=== PATIENT | female | born 1975 | race Caucasian/White ===

== ENCOUNTER → 2016-02-22 | Outpatient (CLI) | payer MEDICAID ==
[~2016-02-22] MED LIST: AC500T PO; ACHD5005 PO; ACYC400T PO; ALPR1TAB7 PO; CEFD300C PO; CEFT1VIA IM; DIVA125T2 PO; DIVA250T4 PO; DOXY100T41 PO; ESTR1PAT TD; ESTR2TAB4 PO; LEVO500T16 PO; LORA0.5T PO; LURA40TA PO; MTP50T PO; OLAN20TA16 PO; OMEP40CA36; OXYC15TA79 PO; PANT40TA3 PO; PARO40TA3 PO; PHEN-725 PO; QUET50TA PO; TAMS-8 PO; TRM50T PO
[2016-02-22 12:42] LABS: MEAN CORPUSCULAR HEMOGLOBIN 30.9 PG (26.0-34.0); MEAN CORPUSCULAR HGB CONC 33.6 g/dL (31.0-37.0); MEAN CORPUSCULAR VOLUME 92 FL (80-100); MEAN PLATELET VOLUME 11.6 FL (6.0-9.5); PLATELET COUNT 199 10^3uL (150-450); WHITE BLOOD COUNT 6.73 10^3uL (4.0-11.0)
[2016-02-22 13:09] LABS: BAND NEUTROPHILS % 0 % (0-6); EOSINOPHILS % 0 % (0-4); LYMPHOCYTES # 2.4 #; MONOCYTES # 0.2 #; MONOCYTES % 3 % (3-11); SEGMENTED NEUTROPHILS % 62 % (51-67); TOTAL CELLS COUNTED 100
[2016-02-22 13:10] LABS: RBC MORPH NORMAL (NORMAL)
[2016-02-22 13:19] LABS: ANION GAP 15.4 MEQ/L (3-15)
== END ==
LOC: LAB 12:15
PROVIDERS: ATTEND Family Medicine
DX: J06.9 Acute upper respiratory infection, unspecified (principal)
CPT/HCPCS: 36415; 80048; 85007; 85027; 86140

== ENCOUNTER 2016-03-17 09:36 | Inpatient (IN) | payer MEDICAID ==
[~2016-03-17] VITALS: Ht 170.2 cm; Wt 94.7 kg
--- NOTE | 2016-03-17 09:40 | NUR ---
Patient arrives ambulatory to room [address] Armen Guzman's office. Reports right lower abdominal pain rated 9/10 that radiates to back, nausea, and fatigue. Reports symptoms began on January 21. Bladder pouch "constructed 20 years ago. I use the same catheter 6-12 times because insurance won't provide me with one for every time". Patient self catheterizes shortly after arrival and has 825 ml cloudy orange urine that is foul smelling out. See admission for full assessment.
[2016-03-17 09:48] VITALS: BP 140/105
--- NOTE | 2016-03-17 10:00 | NUR ---
22g IV initiated on first attempt into left forearm. Flushes well without redness or swelling. Patient tolerates well.
[2016-03-17] MEDS ORDERED: POLYETHYLENE GLYCOL 17 GM (MIRALAX) PACKET PO PRN (10:40)
[2016-03-17] MEDS ORDERED: MAG HYDROX/AL HYDROX/SIMETH 200-200-20/5 ML (MAG-AL PLUS) 30 ML UDC PO PRN (10:40)
[2016-03-17] MEDS ORDERED: MAGNESIUM HYDROXIDE 80MG/ML (MILK OF MAGNESIA) 30 ML UDC PO PRN (10:40)
[2016-03-17] MEDS ORDERED: CALCIUM CARBONATE CHEWABLE 300 MG (TUMS) TABLET PO PRN (10:40)
[2016-03-17 10:59] LABS: BILIRUBIN,URINE Negative (Negative); CLARITY,URINE Cloudy; COLOR,URINE Yellow; GLUCOSE, URINE (UA) Negative (Negative); LEUKOCYTE ESTERASE, URINE 3+ (Negative)
[2016-03-17] MEDS: cefTRIAXone SODIUM 1,000 MG in SODIUM CHLORIDE 50 ML IV SCH (11:05)
[2016-03-17] MEDS: NS FLUSH 3 ML PRN IV ×2 (11:06→16:38)
[2016-03-17] MEDS: ONDANSETRON 4 MG (ZOFRAN) ORAL DISSOLVE TAB PO PRN (11:06)
[2016-03-17] MEDS: ACETAMINOPHEN 325 MG TAB (TYLENOL) PO PRN (11:08)
[2016-03-17 11:20] LABS: URINE CENTRIFUGED VOLUME 12 mL
[2016-03-17 11:28] VITALS: BP 114/72
[2016-03-17 11:29] LABS: BASOPHILS % (AUTO) 0 % (0-2); EOSINOPHILS % (AUTO) 1 % (0-4); LYMPHOCYTES # (AUTO) 0.8 X10^3; MEAN CORPUSCULAR HGB CONC 34.4 g/dL (31.0-37.0); MEAN CORPUSCULAR VOLUME 91 FL (80-100); MEAN PLATELET VOLUME 11.6 FL (6.0-9.5); MONOCYTES # (AUTO) 0.3 X10^3; MONOCYTES % (AUTO) 5 % (3-11); NEUTROPHILS # (AUTO) 5.7 X10^3; NEUTROPHILS % (AUTO) 82 % (51-67); PLATELET COUNT 189 10^3uL (150-450); WHITE BLOOD COUNT 6.89 10^3uL (4.0-11.0)
[2016-03-17 11:32] LABS: MEAN CORPUSCULAR HEMOGLOBIN 31.4 PG (26.0-34.0)
[2016-03-17] MEDS: HYDROmorphone 2 MG/ML (DILAUDID) 1 ML SYRINGE IV PRN ×6 (11:33→22:56)
[2016-03-17 11:42] LABS: ALBUMIN 3.5 g/dL (3.4-5.0); ANION GAP 14.5 MEQ/L (3-15); CALCULATED IONIZED CALCIUM 4.3 mg/dL (3.8-4.6); TOTAL PROTEIN 6.9 g/dL (6.4-8.5)
--- NOTE | 2016-03-17 11:55 | NUR ---
MED REC COMPLETE--current med list obtained from external med history application and patient interview. Conducted by Luis Daniel Stanford, Pharm. D. Candidate 2017.
[2016-03-17] MEDS: ALPRAZolam 0.5 MG (XANAX) TAB PO PRN ×2 (12:29→20:48)
--- NOTE | 2016-03-17 14:07 | NUR ---
MULTIDISCIPLINARY MTG/DR. PIERCE: Pt. admitted due to an ongoing UTI that her PCP has been trying to treat in the outpatient setting for several weeks. Pt. is scheduled for a renal sono today at 14:30. There is possible concern for a renal mass. No discharge needs identified at this time.
[2016-03-17] MEDS: NS FLUSH 10 ML PRN IV (14:25)
--- NOTE | 2016-03-17 14:59 | NUR ---
Ultrasound in room for renal ultrasound.
[2016-03-17 16:04] VITALS: BP 108/74
--- NOTE | 2016-03-17 16:04 | NUR ---
14 mohawk catheter inserted into internal bladder pouch. Yellow urine with moderate sediment draining without difficulty. Patient tolerates well.
[2016-03-17] MEDS: diphenhydrAMINE 25 MG (BENADRYL) TABLET PO PRN (16:59)
[2016-03-17] MEDS ORDERED: LURASIDONE PO SCH ×2 (17:00→21:00)
[2016-03-17] MEDS: meTOprolol TARTRATE 50 MG (LOPRESSOR) TABLET PO SCH (17:34)
[2016-03-17] MEDS: KETOROLAC 15 MG/ML (TORADOL) 1 ML VIAL IV SCH (17:35)
[2016-03-17 20:30] VITALS: BP 141/74
[2016-03-17] MEDS: OLANZAPINE 10 MG PO SCH (20:46)
[2016-03-18 00:32] VITALS: BP 154/71
[2016-03-18] MEDS: HYDROmorphone 2 MG/ML (DILAUDID) 1 ML SYRINGE IV PRN ×5 (02:00→21:36)
[2016-03-18] MEDS: NS FLUSH 10 ML PRN IV ×4 (05:03→23:30)
[2016-03-18] MEDS: KETOROLAC 15 MG/ML (TORADOL) 1 ML VIAL IV SCH ×4 (05:54→18:47)
[2016-03-18 06:12] VITALS: BP 134/75
[2016-03-18 06:12] LABS: BASOPHILS % (AUTO) 0 % (0-2); EOSINOPHILS # (AUTO) 0.1 10^3uL; EOSINOPHILS % (AUTO) 2 % (0-4); LYMPHOCYTES # (AUTO) 1.7 X10^3; MEAN CORPUSCULAR HEMOGLOBIN 31.1 PG (26.0-34.0); MEAN CORPUSCULAR HGB CONC 33.1 g/dL (31.0-37.0); MEAN CORPUSCULAR VOLUME 94 FL (80-100); MEAN PLATELET VOLUME 11.8 FL (6.0-9.5); MONOCYTES # (AUTO) 0.3 X10^3; MONOCYTES % (AUTO) 7 % (3-11); NEUTROPHILS # (AUTO) 2.4 X10^3; NEUTROPHILS % (AUTO) 54 % (51-67); PLATELET COUNT 169 10^3uL (150-450)
[2016-03-18] MEDS: PANTOPRAZOLE 40 MG (PROTONIX) TAB PO SCH (06:18)
[2016-03-18 06:46] LABS: ALBUMIN 2.8 g/dL (3.4-5.0); ANION GAP 10.4 MEQ/L (3-15); PHOSPHORUS 3.8 mg/dL (2.4-4.9)
[2016-03-18] MEDS: ALPRAZolam 0.5 MG (XANAX) TAB PO PRN ×2 (07:14→15:31)
[2016-03-18 08:08] VITALS: BP 151/89
[2016-03-18] MEDS: meTOprolol TARTRATE 50 MG (LOPRESSOR) TABLET PO SCH ×2 (09:18→18:46)
[2016-03-18] MEDS: ACYCLOVIR 200 MG CAP (ZOVIRAX) PO SCH (09:18)
[2016-03-18] MEDS: OXYCODONE IMMEDIATE PO PRN ×3 (09:18→20:10)
[2016-03-18] MEDS: ESTRADIOL 1 MG (ESTRACE) TABLET PO SCH (09:18)
--- NOTE | 2016-03-18 09:18 | NUR ---
PRN OxyIR given at this time for c/o back and abd pain rated 8/10. Denies other needs.
[2016-03-18] MEDS: ENOXAPARIN 40 MG/0.4 ML (LOVENOX) SYR SC SCH (09:20)
--- NOTE | 2016-03-18 09:35 | NUR ---
Pt down to CT at this time via w/c.
[2016-03-18] MEDS: NS FLUSH 3 ML DAILY IV SCH (11:02)
[2016-03-18 11:38] VITALS: BP 184/91
--- NOTE | 2016-03-18 13:14 | NUR ---
PRN Dilaudid given at this time in SL. Denies other needs.
[2016-03-18] MEDS: cefTRIAXone SODIUM 1,000 MG in SODIUM CHLORIDE 50 ML IV SCH (13:17)
[2016-03-18] MEDS: diphenhydrAMINE 25 MG (BENADRYL) TABLET PO PRN ×2 (13:39→21:43)
[2016-03-18] MEDS: ONDANSETRON 4 MG (ZOFRAN) ORAL DISSOLVE TAB PO PRN (13:40)
--- NOTE | 2016-03-18 13:40 | NUR ---
PRN Benadryl and Zofran given at this time per pt request. Denies other needs.
--- NOTE | 2016-03-18 14:00 | NUR ---
Pt returns from CT around 1100. Unable to do CT d/t pt's IV infiltrating. Multiple attempts were made in Radiology prior to pt's return to floor. Maria Eugenia Heller RN attempted multiple times with no success. Gwendolyn Shipley RN attempted once. Lin Wilhelm RN attempted twice with success on the 2nd attempt: 20g L H. IV is very tender, but no redness or edema present. Pt returned to CT with manual injection of IV contrast. Pt returned to regular diet.
--- NOTE | 2016-03-18 14:30 | NUR ---
Pt requests to [id number] at this time. Supplies provided. Pt inserted 14 Fr catheter into stoma and advanced it entirely with no output. Pulled catheter out and back in multiple times with no output. Pt pulls catheter completely out and blows into opposite end of catheter with her mouth, expelling a mucus plug, and places the catheter back into stoma. Pt states "I know that's gross, but when that mucus gets stuck, that's the only way to get it out". 750mL result from straight cath. Abel notified. Will consult infection control nurse to educate patient on proper technique for straight cath.
--- NOTE | 2016-03-18 15:31 | NUR ---
PRN OxyIR and Xanax given at this time per pt request. Rates pain 6/10. Denies other needs.
[2016-03-18 15:33] VITALS: BP 155/85
[2016-03-18] MEDS: LURASIDONE PO SCH (18:45)
--- NOTE | 2016-03-18 19:00 | NUR ---
Upon administration of CARTER Toradol, pt's IV infiltrated. SOLEDAD Gastelum notified. Pt states Toradol doesn't help anyway and requests IV Dilaudid once IV is restarted. Denies other needs.
--- NOTE | 2016-03-18 19:15 | NUR ---
Nirav/SOLEDAD here to start IV.
[2016-03-18 20:00] VITALS: BP 132/72
[2016-03-18] MEDS: OLANZAPINE 10 MG PO SCH (20:10)
--- NOTE | 2016-03-18 20:11 | NUR ---
OxyIR 30 mg PO given for back pain R/T full bladder. Pt. states she recently had a bowel movement; flushed. New IV site in left foot is without HERP.
--- NOTE | 2016-03-18 20:20 | NUR ---
Bladder drained at this time using clean technique. Pt. very rude and disrespectful to this nurse; dictates method to be used even though prior method has proved unhealthy. Gloves provided to pt. as she continued to grab equipment/materials with her bare hands. Bladder drained; pt. repeatedly inserted/retracted tubing during draining; 1300 cc's output; small amount of mucous noted.
--- NOTE | 2016-03-18 21:36 | NUR ---
Dilaudid 2 mg IV given for pain in back rated "8". Room adjusted for comfort. Pt. has many requests met by this nurse. H2O and call light within reach.
--- NOTE | 2016-03-18 21:45 | NUR ---
Benadryl 25 mg PO given for itching/sleep. Pt. currently eating cookie; watching tv.
[2016-03-19 00:30] VITALS: BP 120/76
[2016-03-19] MEDS: NS FLUSH 10 ML PRN IV ×6 (00:35→18:29)
[2016-03-19] MEDS: OXYCODONE IMMEDIATE PO PRN ×4 (00:35→20:54)
[2016-03-19] MEDS: KETOROLAC 15 MG/ML (TORADOL) 1 ML VIAL IV SCH ×3 (00:35→11:47)
[2016-03-19] MEDS: DOCUSATE SODIUM 100 MG (COLACE) CAP PO PRN (00:40)
--- NOTE | 2016-03-19 00:40 | NUR ---
Scheduled Toradol given in IV site at left foot; site working well. OxyIR 30 mg given for pain rated "6-7". Colace given per pt. request. Pt. slurring words; slow to respond to questions. Call light and H2O within reach.
--- NOTE | 2016-03-19 03:00 | NUR ---
Pt. resting quietly; resp are even and unlabored on room air; appears to be in no distress. Call light and H2O within reach.
--- NOTE | 2016-03-19 04:56 | NUR ---
OxyIR 30 mg PO given for left flank pain rated "4". Pt. has been resting in long intervals thus far; fan blowing on pt. for comfort. Call light and H2O within reach.
--- NOTE | 2016-03-19 05:10 | NUR ---
Bladder drained at this time using a 14 Fr. cath; 425 cc's dark holley, cloudy urine. Pt. cooperative with activity; pleasant to this nurse and accompanying RN/Pricila. Pt. 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 Call light within reach.
[2016-03-19 06:00] VITALS: BP 121/70
[2016-03-19] MEDS: PANTOPRAZOLE 40 MG (PROTONIX) TAB PO SCH (06:17)
[2016-03-19] MEDS: diphenhydrAMINE 25 MG (BENADRYL) TABLET PO PRN ×2 (06:17→20:53)
[2016-03-19] MEDS: ALPRAZolam 0.5 MG (XANAX) TAB PO PRN ×2 (06:17→14:53)
--- NOTE | 2016-03-19 06:20 | NUR ---
Scheduled Toradol and Protonix given at this time. Xanax 1 mg PO for anxiety; Benadryl 25 mg PO for itching; MOM 30 ml's PO given for constipation-per pt. request. Pt. takes right hand/wrist brace off for awhile; pain level attributed to both wrist pain and also flank/back pain.
[2016-03-19] MEDS: HYDROmorphone 2 MG/ML (DILAUDID) 1 ML SYRINGE IV PRN ×4 (07:14→18:29)
--- NOTE | 2016-03-19 07:15 | NUR ---
Dilaudid 2 mg IV given for pain rated "6" located in right hand/wrist; back. Pt. states, "Toradol is like water; it doesn't do a thing for me!" Pt. asks additional questions pertaining to bowel movements; laxatives/softeners. Pt. has denied nausea all shift. Call light and H2O within reach. Pt. asks for additional Sprite.
[2016-03-19 08:04] VITALS: BP 147/93
[2016-03-19] MEDS: meTOprolol TARTRATE 50 MG (LOPRESSOR) TABLET PO SCH ×2 (08:43→17:47)
[2016-03-19] MEDS: ESTRADIOL 1 MG (ESTRACE) TABLET PO SCH (08:43)
[2016-03-19] MEDS: NS FLUSH 3 ML DAILY IV SCH (08:43)
[2016-03-19] MEDS: ACYCLOVIR 200 MG CAP (ZOVIRAX) PO SCH (08:43)
[2016-03-19] MEDS: ENOXAPARIN 40 MG/0.4 ML (LOVENOX) SYR SC SCH (08:44)
[2016-03-19] MEDS ORDERED: VANCOMYCIN 1,000 MG in SODIUM CHLORIDE 250 ML IV SCH (09:00)
[2016-03-19] MEDS: cefTRIAXone SODIUM 1,000 MG in SODIUM CHLORIDE 50 ML IV SCH (10:34)
--- NOTE | 2016-03-19 11:03 | NUR ---
Pharmacy Dosed Vanco S: UTI w/ bcx showing MRSA O: 42F 67in 94.5kg (adjusted to 74.8kg) SCr 0.79 A/P: Started Rocephin 1g daily and added Vanco 1250mg IV q12h with a predicted trough of 15.6 to be drawn 03/21/16 @0830.
[2016-03-19] MEDS: VANCOMYCIN 1250 MG in SODIUM CHLORIDE 250 ML IV SCH ×2 (11:13→21:00)
--- NOTE | 2016-03-19 11:30 | NUR ---
Patient self catheterizes herself with nurse supervision. Demonstrates proper technique using sterile gloves. 1500 ml clear yellow urine drained from bladder.
[2016-03-19 12:00] VITALS: BP 134/89
[2016-03-19 12:29] LABS: ANION GAP 12.1 MEQ/L (3-15); MAGNESIUM* 1.8 mg/dL (1.6-2.3); PHOSPHORUS 4.3 mg/dL (2.4-4.9)
[2016-03-19 12:37] LABS: BASOPHILS % (AUTO) 0 % (0-2); EOSINOPHILS # (AUTO) 0.1 10^3uL; EOSINOPHILS % (AUTO) 1 % (0-4); LYMPHOCYTES # (AUTO) 1.6 X10^3; MEAN CORPUSCULAR HEMOGLOBIN 31.1 PG (26.0-34.0); MEAN CORPUSCULAR HGB CONC 33.4 g/dL (31.0-37.0); MEAN CORPUSCULAR VOLUME 93 FL (80-100); MEAN PLATELET VOLUME 11.1 FL (6.0-9.5); MONOCYTES # (AUTO) 0.3 X10^3; MONOCYTES % (AUTO) 7 % (3-11); NEUTROPHILS # (AUTO) 2.7 X10^3; NEUTROPHILS % (AUTO) 57 % (51-67); PLATELET COUNT 165 10^3uL (150-450); WHITE BLOOD COUNT 4.73 10^3uL (4.0-11.0)
[2016-03-19] MEDS: ONDANSETRON 4 MG (ZOFRAN) ORAL DISSOLVE TAB PO PRN (14:50)
[2016-03-19 15:41] VITALS: BP 132/94
--- NOTE | 2016-03-19 16:00 | NUR ---
PRN Dilaudid provided for c/o right sided flank pain rated 6/10 on pain scale. Patient self catheterizes at this time with proper technique. 1400 ml clear yellow urine drained from bladder. Patient expresses emotional distress regarding life style of catheterizing self. Support group resource provided to patient. Positive reassurance provided. Call light in reach.
[2016-03-19] MEDS: LURASIDONE PO SCH (16:33)
--- NOTE | 2016-03-19 18:21 | NUR ---
Patient sitting up in bed consuming supper. Reports pain persists despite PRN OxyIR and Dilaudid. Encouraged patient to ambulate and drink plenty of water. Call light in reach.
--- NOTE | 2016-03-19 19:50 | NUR ---
Visitor in pt. room; pt. appears very happy; smiles. Pt. denies current needs; rates current pain level at "3"; saline lock at left foot secure and without HERP. Call light and H2O within reach.
[2016-03-19 20:26] VITALS: BP 130/76
[2016-03-19] MEDS: OLANZAPINE 10 MG PO SCH (20:53)
--- NOTE | 2016-03-19 20:55 | NUR ---
OxyIR 30 mg given for pain rated "4". Benadryl 25 mg PO given for itching.
[2016-03-19] MEDS ORDERED: VANCOMYCIN COMPOUNDED BY PHARMACY IV SCH (21:00)
--- NOTE | 2016-03-19 21:00 | NUR ---
Vancomycin currently infusing without difficulty at left foot IV site.
--- NOTE | 2016-03-19 21:05 | NUR ---
Bladder drained at this time; pt. cooperative with utilizing clean technique-chux; gloves; povidone-iodine swabs; 14 Fr. red catheter. Total of 1225 cc's yellow/cloudy/mucous urine drained. Contact precautions observed as urine positive for MRSA.
--- NOTE | 2016-03-19 21:15 | NUR ---
Pt. requests snack; additional Sprite/ice and alicia crackers/peanut butter provided. Pt. watching tv; very pleasant and cooperative with cares. Call light by left hand.
--- NOTE | 2016-03-19 23:00 | NUR ---
Pt. resting quietly; resp are even and unlabored on room air; appears to be in no distress.
[2016-03-20] VITALS (7 sets, daily range): BP systolic 128–146; BP diastolic 70–95
[2016-03-20] MEDS: NS FLUSH 10 ML PRN IV ×2 (00:58→06:07)
[2016-03-20] MEDS: HYDROmorphone 2 MG/ML (DILAUDID) 1 ML SYRINGE IV PRN ×3 (00:58→15:33)
--- NOTE | 2016-03-20 01:00 | NUR ---
Pt. requests Dilaudid; "I don't want the other one, Dilaudid works better for me". Pt. rates pain at "6" in her back and right wrist. Pt. currently sitting up in bed eating ice chips; resp are even and unlabored on room air; call light within reach.
--- NOTE | 2016-03-20 01:15 | NUR ---
Pt. self-caths utilizing good technique; 975 cc's output. Urine coloration much improved from 24 hrs. ago although mucous remains. Pt. cooperative with task. Contact precautions observed.
[2016-03-20] MEDS: OXYCODONE IMMEDIATE PO PRN ×5 (03:18→21:59)
--- NOTE | 2016-03-20 03:18 | NUR ---
OxyIR 30 mg PO given for pain rated "5".
[2016-03-20] MEDS ORDERED: NS 100 ML (IVPB) BAG IV ONE (05:40)
[2016-03-20] MEDS ORDERED: SODIUM CHLORIDE 250 ML ONE (05:42)
[2016-03-20] MEDS: DOCUSATE SODIUM 100 MG (COLACE) CAP PO PRN (06:06)
[2016-03-20] MEDS: PANTOPRAZOLE 40 MG (PROTONIX) TAB PO SCH (06:06)
--- NOTE | 2016-03-20 06:10 | NUR ---
Dilaudid 2 mg IV given for pain rated "7" in back and right wrist. Colace given per request.
--- NOTE | 2016-03-20 06:15 | NUR ---
Bladder drained at this time using good technique; pt. cooperative with procedure; this nurse assisted as needed. Yellow urine with mucous threads; 1550 cc's.
[2016-03-20] MEDS: diphenhydrAMINE 25 MG (BENADRYL) TABLET PO PRN ×2 (06:42→15:32)
[2016-03-20] MEDS: ALPRAZolam 0.5 MG (XANAX) TAB PO PRN ×3 (06:42→21:56)
--- NOTE | 2016-03-20 06:45 | NUR ---
Benadryl 25 mg PO given for report of itching; Xanax 1 mg given for anxiety. Pt. states, "You might want to call anesthesia to start another IV- this one is beginning to hurt". No edema; redness; oozing/leaking noted at current site located at left foot. Pt. encouraged to give the IV site another chance as no problems with it so far. Pt. exhibiting bilateral upper extremity edema; ambulation goal discussed for today. Pt. sitting up in bed watching tv; call light and several drinks within reach.
[2016-03-20 07:34] LABS: BASOPHILS % (AUTO) 0 % (0-2); EOSINOPHILS # (AUTO) 0.1 10^3uL; EOSINOPHILS % (AUTO) 1 % (0-4); LYMPHOCYTES # (AUTO) 1.4 X10^3; MEAN CORPUSCULAR HGB CONC 33.8 g/dL (31.0-37.0); MEAN CORPUSCULAR VOLUME 93 FL (80-100); MEAN PLATELET VOLUME 11.3 FL (6.0-9.5); MONOCYTES # (AUTO) 0.5 X10^3; MONOCYTES % (AUTO) 8 % (3-11); NEUTROPHILS # (AUTO) 3.7 X10^3; NEUTROPHILS % (AUTO) 66 % (51-67); PLATELET COUNT 177 10^3uL (150-450); WHITE BLOOD COUNT 5.62 10^3uL (4.0-11.0)
[2016-03-20 07:45] LABS: MEAN CORPUSCULAR HEMOGLOBIN 31.6 PG (26.0-34.0)
[2016-03-20 07:52] LABS: ALBUMIN 3.1 g/dL (3.4-5.0); ANION GAP 11.7 MEQ/L (3-15); MAGNESIUM* 1.6 mg/dL (1.6-2.3)
--- NOTE | 2016-03-20 08:30 | NUR ---
PRN OxyIR given at this time for c/o flank pain rated 7/10. Pt sitting up in bed, talking on phone upon entering room. Pt endorses tenderness at IV site and states "I think we should get the anesthesia luke back in here to restart it". Flushes easily, no redness or edema noted. Informed pt IV was working fine and that IV's in the foot are more tender than in the arm. Pt agrees. Denies other needs.
[2016-03-20] MEDS: ACYCLOVIR 200 MG CAP (ZOVIRAX) PO SCH (08:31)
[2016-03-20] MEDS: meTOprolol TARTRATE 50 MG (LOPRESSOR) TABLET PO SCH ×2 (08:32→18:06)
[2016-03-20] MEDS: ESTRADIOL 1 MG (ESTRACE) TABLET PO SCH (08:32)
[2016-03-20] MEDS: ENOXAPARIN 40 MG/0.4 ML (LOVENOX) SYR SC SCH (08:36)
[2016-03-20] MEDS: NS FLUSH 3 ML DAILY IV SCH (08:37)
--- NOTE | 2016-03-20 09:30 | NUR ---
Pt requests to self-catheterize herself. Uses clean technique. 1100mL result.
--- NOTE | 2016-03-20 10:30 | NUR ---
Pt requests to self-catheterize herself again. Clean technique observed. 650mL result. Inder notified d/t high volumes at 0930 and 1030. Pt endorses flank pain frequently, requesting Dilaudid. Inder instructed staff to straight cath Q2 hours in attempts to avoid IV pain medication. Pt notified, appreciative of information.
--- NOTE | 2016-03-20 12:23 | NUR ---
MULTIDISCIPLINARY MTG/DR. CERNA: Pt. was struggling with urinary retention. Pt. continues to complain of flank pain when her bladder is full. Pt. needs to self cath more frequently to help prevent this. Pt. is improving. Pt. is on IV antibiotics but will change to oral today to prepare for discharge. Pt. is using Dilaudid and her home oxycodone for pain. to discuss Pt. pain concerns and adjust medication accordingly. No discharge needs identified at this time.
--- NOTE | 2016-03-20 12:55 | NUR ---
PRN OxyIR given at this time for flank pain. Denies other needs.
--- NOTE | 2016-03-20 14:30 | NUR ---
Duff placed per Dr Loving's verbal order d/t pt's high volume straight caths and flank pain. Pt tolerated this well. Clear yellow urine with some sediment present.
--- NOTE | 2016-03-20 15:25 | NUR ---
NUTRITION ASSESSMENT Level 1 Patient: Whitney Kolb Age/Sex: 40/F Date Screened: 03-20-16 Weight: 210.3#/95.6 kg Height: 67 inches Primary Diagnosis: UTI Diet Order: regular Relevant labs: glucose 108, phosphorus 5.0 Food allergies: N Nutrition Assessment Criteria Age over 80: N Body Mass Index (BMI) under 19: N Admission Screening Indicates Risk? N Moderate/High Risk Diagnosis: N TPN or PPN: N NPO or clear liquid diet: N Serum Glucose <70 or >180: N Hgb A1c >6.7: N/A Total: 0 points Risk Screen: _X_ Patient at low nutritional risk based on available data; reevaluate in 5-7 days __ Patient at moderate nutritional risk based on available data; reevaluate in 3-5 days __ Patient at high nutritional risk; complete Nutrition Assessment within 48 hours of admission. Comments: Pt. denied weight changes, no GI concerns. She is eating well with regular diet, so appetite is improving. Will reassess as documented above.
--- NOTE | 2016-03-20 15:33 | NUR ---
PRN Dilaudid given at this time for c/o R flank pain rated 7/10. Pt resting in bed, watching TV. Denies other needs.
--- NOTE | 2016-03-20 15:45 | NUR ---
Visited with Pt. along with nurse Sanderson regarding her wishes on visitors. Pt. stated she is fine with all visitors her family and her . She said her can visit her because she is in a safe place. SW clarified her 's name and she said it is Juice Kolb. SW stated if he is going to visit they need to keep the door open so staff are aware of what is happening. Maria E explained that Juice was just here and he asked if Pt. was having visitors and he was told she is not to have visitors. Maria E offered to check with Pt. and he declined and left. Pt. became upset about this and said she would try and call him. Pt. was on the phone as SW and nurse left the room.
[2016-03-20] MEDS: DOXYCYCLINE 100 MG (VIBRAMYCIN) TABLET PO SCH (18:06)
--- NOTE | 2016-03-20 18:06 | NUR ---
PRN OxyIR given at this time for c/o flank pain. Denies other needs.
[2016-03-20] MEDS: LURASIDONE PO SCH (18:07)
[2016-03-20] MEDS ORDERED: ACETAMINOPHEN 500 MG TAB (TYLENOL) PO PRN (18:30)
[2016-03-20] MEDS: TAMSULOSIN 0.4 MG (FLOMAX) CAP PO SCH (19:42)
[2016-03-20] MEDS: OLANZAPINE 10 MG PO SCH (21:56)
[2016-03-21 06:17] LABS: BASOPHILS % (AUTO) 0 % (0-2); EOSINOPHILS # (AUTO) 0.1 10^3uL; EOSINOPHILS % (AUTO) 2 % (0-4); LYMPHOCYTES # (AUTO) 1.5 X10^3; MEAN CORPUSCULAR HGB CONC 34.9 g/dL (31.0-37.0); MEAN CORPUSCULAR VOLUME 90 FL (80-100); MEAN PLATELET VOLUME 11.6 FL (6.0-9.5); MONOCYTES # (AUTO) 0.4 X10^3; MONOCYTES % (AUTO) 7 % (3-11); NEUTROPHILS # (AUTO) 3.9 X10^3; NEUTROPHILS % (AUTO) 66 % (51-67); PLATELET COUNT 194 10^3uL (150-450); WHITE BLOOD COUNT 5.92 10^3uL (4.0-11.0)
[2016-03-21] MEDS: PANTOPRAZOLE 40 MG (PROTONIX) TAB PO SCH (06:20)
[2016-03-21] MEDS: DOXYCYCLINE 100 MG (VIBRAMYCIN) TABLET PO SCH (06:20)
[2016-03-21] MEDS: ALPRAZolam 0.5 MG (XANAX) TAB PO PRN ×2 (06:22→13:16)
[2016-03-21] MEDS: OXYCODONE IMMEDIATE PO PRN ×3 (06:23→15:37)
--- NOTE | 2016-03-21 06:26 | NUR ---
Pt rests in long intervals throughout the night. PRN oxyIR given x2 for c/o flank pain. SL intact to L foot. Resp even and non labored on RA. Denies needs at this time.
[2016-03-21 06:29] LABS: ALBUMIN 3.2 g/dL (3.4-5.0); ANION GAP 12.5 MEQ/L (3-15); MAGNESIUM* 1.5 mg/dL (1.6-2.3); PHOSPHORUS 3.8 mg/dL (2.4-4.9)
[2016-03-21 06:51] LABS: MEAN CORPUSCULAR HEMOGLOBIN 31.5 PG (26.0-34.0)
[2016-03-21 08:03] VITALS: BP 116/77
[2016-03-21] MEDS: ESTRADIOL 1 MG (ESTRACE) TABLET PO SCH (08:36)
[2016-03-21] MEDS: meTOprolol TARTRATE 50 MG (LOPRESSOR) TABLET PO SCH (08:36)
[2016-03-21] MEDS: ACYCLOVIR 200 MG CAP (ZOVIRAX) PO SCH (08:36)
[2016-03-21] MEDS: ENOXAPARIN 40 MG/0.4 ML (LOVENOX) SYR SC SCH (08:37)
[2016-03-21] MEDS: NS FLUSH 3 ML DAILY IV SCH (09:07)
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
[2016-03-21] MEDS: TAMSULOSIN 0.4 MG (FLOMAX) CAP PO SCH (10:32)
--- NOTE | 2016-03-21 10:33 | NUR ---
PRN OxyIR given at this time for flank pain. Pt denies other needs. at bedside, room door open.
[2016-03-21] MEDS ORDERED: MAGNESIUM OXIDE 400 MG (MAG-OX) TAB PO ONE (11:00)
[2016-03-21] MEDS: ACETAMINOPHEN 325 MG TAB (TYLENOL) PO PRN (13:13)
[2016-03-21] MEDS ORDERED: cefTRIAXone SODIUM 1,000 MG in SODIUM CHLORIDE 50 ML IV ONE (14:15)
[2016-03-21] MEDS ORDERED: cefTRIAXone 1 GM (ROCEPHIN) VIAL IM ONE (15:12)
[2016-03-21] MEDS ORDERED: LIDOCAINE PF 1% (XYLOCAINE) 2 ML VIAL INJ ONE (15:12)
--- NOTE | 2016-03-21 16:04 | NUR ---
Discharge instructions reviewed with patient, demonstrates understanding. Pharmacy reviewed medications with patient. Home med bottles given back to pt. Belongings gathered. SL removed with catheter tip intact. No redness, bleeding noted. Bandage applied. Duff patent to DD; clear, yellow with small amount of sediment. Pt dismissed at this time via w/c accompanied by Debbie Denny CNA. Pt appreciative of cares.
== END 2016-03-21 16:03 | disposition home or self-care (01) | DRG 699 ==
LOC: EEVIPCON 09:36 → MED/SURG 09:36
PROVIDERS: ADMIT Internal Medicine; ATTEND Internal Medicine
DX: T83.511A Infection and inflammatory reaction due to indwelling urethral catheter, initial encounter (principal); R78.81 Bacteremia; N13.30 Unspecified hydronephrosis; N39.0 Urinary tract infection, site not specified; N32.0 Bladder-neck obstruction; E86.0 Dehydration; E83.42 Hypomagnesemia; F20.9 Schizophrenia, unspecified; F41.9 Anxiety disorder, unspecified; I10 Essential (primary) hypertension; G89.29 Other chronic pain; Z93.51 Cutaneous-vesicostomy status; B95.62 Methicillin resistant Staphylococcus aureus infection as the cause of diseases classified elsewhere; Y84.6 Urinary catheterization as the cause of abnormal reaction of the patient, or of later complication, without mention of misadventure at the time of the procedure
CPT/HCPCS: 36415; 74178; 76770; 80053; 80069; 81003; 81015; 83735; 85025; 86140; 87040; 87077; 87088; 87147; 87150; 87186; 87205

== ENCOUNTER 2016-03-22 12:35 | Outpatient (RCR) | payer MEDICAID ==
[~2016-03-22] VITALS: Ht 170.2 cm; Wt 100.7 kg
[~2016-03-22 12:35] MED LIST changes: -LEVO500T16 PO; -PHEN-725 PO
[2016-03-22] MEDS: cefTRIAXone 1 GM (ROCEPHIN) VIAL IM SCH (13:14)
[2016-03-22] MEDS: LIDOCAINE PF 1% (XYLOCAINE) 2 ML VIAL INJ SCH (13:15)
[2016-03-23] MEDS: cefTRIAXone 1 GM (ROCEPHIN) VIAL IM SCH (13:21)
[2016-03-23] MEDS: LIDOCAINE PF 1% (XYLOCAINE) 2 ML VIAL INJ SCH (13:21)
[2016-03-24] MEDS: cefTRIAXone 1 GM (ROCEPHIN) VIAL IM SCH (10:12)
[2016-03-24] MEDS: LIDOCAINE PF 1% (XYLOCAINE) 2 ML VIAL INJ SCH (10:13)
[2016-03-27] MEDS: cefTRIAXone 1 GM (ROCEPHIN) VIAL IM SCH ×2 (12:00→19:07)
[2016-03-27] MEDS ORDERED: LIDOCAINE PF 1% (XYLOCAINE) 2 ML VIAL INJ ONE (19:01)
--- NOTE | 2016-03-27 19:22 | NUR ---
Pt arrived at 1900 for her injection. It was given but pt was instructed on the importance of receiving her injections at the same time everyday for the drug to be effective. She will call JOSE C Nathan (ER) at 0830 tomorrow to verify the best time for her to come in since she received her injection so late tonight. Pt usually comes in between 0800 and 1000 everyday. JOSE C Nathan (ER) notified that the pt would call her.
--- NOTE | 2016-03-27 19:23 | NUR ---
Double checked order along with Angie Mejia RN. Pt forgot to come in this am for IM antibiotic. Pt states that she will get back on schedule as before. Angie Mejia RN administered Rocephin dose tonight- charted by Angie Ramon RN on her behalf.
[2016-03-28] MEDS ORDERED: LIDOCAINE PF 1% (XYLOCAINE) 2 ML VIAL INJ ONE (12:09)
[2016-03-28] MEDS: cefTRIAXone 1 GM (ROCEPHIN) VIAL IM SCH (12:10)
[2016-03-29] MEDS: cefTRIAXone 1 GM (ROCEPHIN) VIAL IM SCH (09:44)
[2016-03-29] MEDS: LIDOCAINE PF 1% (XYLOCAINE) 2 ML VIAL INJ SCH (09:45)
[2016-03-29] MEDS ORDERED: LIDOCAINE PF 1% (XYLOCAINE) 2 ML VIAL INJ SCH (12:00)
[2016-03-30] MEDS: cefTRIAXone 1 GM (ROCEPHIN) VIAL IM SCH (09:49)
[2016-03-31] MEDS: cefTRIAXone 1 GM (ROCEPHIN) VIAL IM SCH (13:56)
[2016-03-31] MEDS: LIDOCAINE PF 1% (XYLOCAINE) 2 ML VIAL INJ SCH (13:56)
[2016-04-01] MEDS: cefTRIAXone 1 GM (ROCEPHIN) VIAL IM SCH (11:02)
[2016-04-01] MEDS: LIDOCAINE PF 1% (XYLOCAINE) 2 ML VIAL INJ SCH (11:03)
[2016-04-02] MEDS: cefTRIAXone 1 GM (ROCEPHIN) VIAL IM SCH (08:51)
[2016-04-02] MEDS: LIDOCAINE PF 1% (XYLOCAINE) 2 ML VIAL INJ SCH (08:52)
[2016-04-03] MEDS: cefTRIAXone 1 GM (ROCEPHIN) VIAL IM SCH (08:15)
[2016-04-04] MEDS: cefTRIAXone 1 GM (ROCEPHIN) VIAL IM SCH (10:40)
[2016-04-04] MEDS: LIDOCAINE PF 1% (XYLOCAINE) 2 ML VIAL INJ SCH (10:40)
[2016-04-04 10:43] VITALS: BP 117/82
[2016-04-09] MEDS ORDERED: PHEN-725 PO (00:08)
[2016-04-12] MEDS ORDERED: LEVO500T16 PO (10:01)
== END 2016-06-20 | disposition home or self-care (01) ==
LOC: EUOP 03-23 12:59
PROVIDERS: ATTEND Family Medicine
DX: R82.71 Bacteriuria (principal); B95.62 Methicillin resistant Staphylococcus aureus infection as the cause of diseases classified elsewhere
CPT/HCPCS: 96372; J0696; J2001

== ENCOUNTER 2016-04-08 23:50 | Emergency (ER) | payer MEDICAID ==
[~2016-04-08] VITALS: Ht 170.2 cm; Wt 94.7 kg
--- NOTE | 2016-04-09 00:16 | NUR ---
NURSE ASPIRATED URINE OUT OF TUBE AT PORT PER MANAGER MEDIA RELATIONS TO GET A UA AND A MUCOUS CLOT/THREAD CAME WITH IT AND THE SP CATH STARTED DRAINING.
[2016-04-09 00:42] LABS: BILIRUBIN,URINE Negative (Negative); CLARITY,URINE Clear; GLUCOSE, URINE (UA) Negative (Negative); LEUKOCYTE ESTERASE ,URINE Negative (Negative); UROBILINOGEN,URINE 0.2 mg/dL (0.2-1.0)
[2016-04-09 01:07] VITALS: BP 132/80
== END 2016-04-09 01:08 | disposition home or self-care (01) ==
LOC: ED 23:51
DX: T83.098A Other mechanical complication of other urinary catheter, initial encounter (principal); R33.8 Other retention of urine; Z90.6 Acquired absence of other parts of urinary tract
CPT/HCPCS: 81003; 99282; 99283

== ENCOUNTER 2016-04-12 08:31 | Emergency (ER) | payer MEDICAID ==
[~2016-04-12] VITALS: Ht 170.2 cm; Wt 93.8 kg
[2016-04-12] MEDS ORDERED: ONDANSETRON 2 MG/ML (Z0FRAN) 2 ML VIAL IV ONE (08:45)
[2016-04-12] MEDS ORDERED: HYDROmorphone 1 MG/ML (DILAUDID) SYRINGE IV ONE (08:45)
[2016-04-12] MEDS ORDERED: SODIUM CHLORIDE FLUSH 10 ML SYR IV PRN (08:50)
[2016-04-12 09:20] LABS: BASOPHILS % (AUTO) 0 % (0-2); EOSINOPHILS # (AUTO) 0.2 10^3uL; EOSINOPHILS % (AUTO) 2 % (0-4); LYMPHOCYTES # (AUTO) 1.4 X10^3; MEAN CORPUSCULAR HGB CONC 34.6 g/dL (31.0-37.0); MEAN CORPUSCULAR VOLUME 91 FL (80-100); MEAN PLATELET VOLUME 12.1 FL (6.0-9.5); MONOCYTES # (AUTO) 0.5 X10^3; MONOCYTES % (AUTO) 7 % (3-11); NEUTROPHILS # (AUTO) 5.5 X10^3; NEUTROPHILS % (AUTO) 71 % (51-67); PLATELET COUNT 118 10^3uL (150-450); WHITE BLOOD COUNT 7.78 10^3uL (4.0-11.0)
[2016-04-12] MEDS ORDERED: ONDANSETRON 2 MG/ML (Z0FRAN) 2 ML VIAL IM ONE (09:20)
[2016-04-12] MEDS ORDERED: HYDROmorphone 1 MG/ML (DILAUDID) SYRINGE IM ONE (09:20)
[2016-04-12 09:22] LABS: MEAN CORPUSCULAR HEMOGLOBIN 31.6 PG (26.0-34.0)
[2016-04-12 09:29] LABS: ALBUMIN 3.6 g/dL (3.4-5.0); ANION GAP 13.8 MEQ/L (3-15); CALCULATED IONIZED CALCIUM 4.3 mg/dL (3.8-4.6); TOTAL PROTEIN 7.1 g/dL (6.4-8.5)
[2016-04-12 09:34] LABS: BILIRUBIN,URINE Negative (Negative); CLARITY,URINE Cloudy; COLOR,URINE Brown; GLUCOSE, URINE (UA) Negative (Negative); LEUKOCYTE ESTERASE ,URINE Trace (Negative); UROBILINOGEN,URINE 0.2 mg/dL (0.2-1.0)
--- NOTE | 2016-04-12 09:40 | NUR ---
large amount of mucous dark yellow urine withdrawn after flush of cathester - ns
[2016-04-12 09:42] LABS: AMORPHOUS SEDIMENT,UR 1+ /HPF; RBC,URINE >100 /HPF; URINE CENTRIFUGED VOLUME 12 mL
--- NOTE | 2016-04-12 09:43 | NUR ---
pt does not need anything at this time
[2016-04-12 10:09] VITALS: BP 155/99
== END 2016-04-12 10:05 | disposition home or self-care (01) ==
LOC: ED 08:32
DX: N39.0 Urinary tract infection, site not specified (principal); R33.8 Other retention of urine
CPT/HCPCS: 36415; 80053; 81003; 81015; 85025; 87088; 96372; 99284; J1170; J2405; 99283

== ENCOUNTER 2016-04-15 16:35 | Emergency (ER) | payer MEDICAID ==
[~2016-04-15] VITALS: Ht 170.2 cm; Wt 92.4 kg
--- NOTE | 2016-04-15 19:40 | NUR ---
Changed pt's hyde bag only, she states that she has a leak in it, also given a new leg bag as well. Pt then d/c to home
[2016-04-15 19:50] VITALS: BP 97/57
== END 2016-04-15 19:50 | disposition home or self-care (01) ==
LOC: ED 16:35
DX: Z43.3 Encounter for attention to colostomy (principal)
CPT/HCPCS: 99282

== ENCOUNTER → 2016-04-23 | Outpatient (CLI) | payer MEDICAID ==
[2016-04-23 12:42] LABS: BASOPHILS % (AUTO) 0 % (0-2); EOSINOPHILS # (AUTO) 0.1 10^3uL; EOSINOPHILS % (AUTO) 1 % (0-4); LYMPHOCYTES # (AUTO) 1.6 X10^3; MEAN CORPUSCULAR HEMOGLOBIN 30.4 PG (26.0-34.0); MEAN CORPUSCULAR HGB CONC 33.8 g/dL (31.0-37.0); MEAN CORPUSCULAR VOLUME 90 FL (80-100); MEAN PLATELET VOLUME 11.6 FL (6.0-9.5); MONOCYTES # (AUTO) 0.3 X10^3; MONOCYTES % (AUTO) 4 % (3-11); NEUTROPHILS # (AUTO) 5.1 X10^3; NEUTROPHILS % (AUTO) 72 % (51-67); PLATELET COUNT 225 10^3uL (150-450); WHITE BLOOD COUNT 7.13 10^3uL (4.0-11.0)
== END ==
LOC: LAB 12:12
PROVIDERS: ATTEND Family Medicine
DX: N12 Tubulo-interstitial nephritis, not specified as acute or chronic (principal)
CPT/HCPCS: 36415; 85025; 86140

== ENCOUNTER 2016-05-13 20:19 | Emergency (ER) | payer OTHER, MEDICAID ==
[~2016-05-13] VITALS: Ht 170.2 cm; Wt 90.0 kg
[2016-05-13 20:49] LABS: BASOPHILS % (AUTO) 0 % (0-2); EOSINOPHILS # (AUTO) 0.1 10^3uL; EOSINOPHILS % (AUTO) 1 % (0-4); LYMPHOCYTES # (AUTO) 1.1 X10^3; MEAN CORPUSCULAR HEMOGLOBIN 30.4 PG (26.0-34.0); MEAN CORPUSCULAR HGB CONC 33.4 g/dL (31.0-37.0); MEAN CORPUSCULAR VOLUME 91 FL (80-100); MEAN PLATELET VOLUME 11.8 FL (6.0-9.5); MONOCYTES # (AUTO) 0.4 X10^3; MONOCYTES % (AUTO) 5 % (3-11); NEUTROPHILS # (AUTO) 6.7 X10^3; NEUTROPHILS % (AUTO) 80 % (51-67); PLATELET COUNT 171 10^3uL (150-450)
[2016-05-13 20:56] LABS: BILIRUBIN,URINE Negative (Negative); CLARITY,URINE Cloudy; COLOR,URINE Yellow; GLUCOSE, URINE (UA) Negative (Negative); LEUKOCYTE ESTERASE ,URINE 3+ (Negative); UROBILINOGEN,URINE 0.2 mg/dL (0.2-1.0)
[2016-05-13 20:58] LABS: ALBUMIN 4.2 g/dL (3.4-5.0); ALKALINE PHOSPHATASE 116 U/L (38-126); ANION GAP 16.5 MEQ/L (3-15); BUN/CREATININE RATIO 15 (10-20); CALCULATED IONIZED CALCIUM 4.1 mg/dL (3.8-4.6); TOTAL PROTEIN 7.8 g/dL (6.4-8.5)
[2016-05-13 21:07] LABS: RBC,URINE >100 /HPF; URINE CENTRIFUGED VOLUME 12 mL
[2016-05-13 21:09] LABS: AMPHETAMINE SCREEN, URINE Positive (Negative); CANNABINOID SCREEN, URINE Negative (Negative); METHAMPHETAMINE SCREEN URINE S POSITIVE (NEGATIVE); OPIATE SCREEN URINE Negative (Negative); PROPOXYPHENE STAT NEGATIVE (NEGATIVE)
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
[2016-05-13 22:50] VITALS: BP 125/80
== END 2016-05-13 22:23 | disposition home or self-care (01) ==
LOC: EDUNIT# 20:19 → ED 20:23
DX: S16.1XXA Strain of muscle, fascia and tendon at neck level, initial encounter (principal); F13.929 Sedative, hypnotic or anxiolytic use, unspecified with intoxication, unspecified; F15.10 Other stimulant abuse, uncomplicated; S20.02XA Contusion of left breast, initial encounter; S20.01XA Contusion of right breast, initial encounter; V49.40XA Driver injured in collision with unspecified motor vehicles in traffic accident, initial encounter; Y93.C2 Activity, hand held interactive electronic device; Y92.410 Unspecified street and highway as the place of occurrence of the external cause; R40.2412 Glasgow coma scale score 13-15, at arrival to emergency department
CPT/HCPCS: 36415; 51701; 70450; 71020; 72125; 76376; 80053; 80307; 80320; 81003; 81015; 85025; 87088; 99284; 99285

== ENCOUNTER → 2016-05-13 | Outpatient (CLI) | payer OTHER, MEDICAID | LOC: EMS 20:15 | PROVIDERS: ATTEND Family Medicine | DX: M54.2 Cervicalgia (principal); S20.219A Contusion of unspecified front wall of thorax, initial encounter; V53.5XXA Driver of pick-up truck or van injured in collision with car, pick-up truck or van in traffic accident, initial encounter; Y92.488 Other paved roadways as the place of occurrence of the external cause; R41.82 Altered mental status, unspecified ==